=== PATIENT | male | born 1965 | race Caucasian/White ===

== ENCOUNTER 2018-10-23 12:12 | Emergency (ER) | payer MEDICAID ==
[~2018-10-23] VITALS: Ht 177.8 cm; Wt 79.0 kg
[2018-10-23] MEDS ORDERED: TRAMADOL 50MG TABLET PO ONE (14:45)
[2018-10-23 16:13] VITALS: BP 154/78
== END 2018-10-23 16:14 | disposition home or self-care (01) ==
LOC: ER 12:12
DX: M54.2 Cervicalgia (principal); R07.89 Other chest pain; I10 Essential (primary) hypertension; R07.81 Pleurodynia; Z87.438 Personal history of other diseases of male genital organs; V49.88XA Car occupant (driver) (passenger) injured in other specified transport accidents, initial encounter; Y93.89 Activity, other specified; Y92.89 Other specified places as the place of occurrence of the external cause; Y99.8 Other external cause status
CPT/HCPCS: 71101; 93005; 99283